=== PATIENT | female | born 1950 | race Caucasian/White ===

== ENCOUNTER 2020-06-29 07:53 | Emergency (ER) | payer OTHER ==
[2020-06-29 08:03] VITALS: BMI 22.4
[2020-06-29] MEDS ORDERED: LIDOCAINE 5% TOPICAL PATCH TP ONE (08:59)
[2020-06-29] MEDS ORDERED: ACETAMINOPHEN 325 MG TABLET (FP) PO ONE (08:59)
[2020-06-29] MEDS ORDERED: ACETAMINOPHEN 325 MG TABLET (FP) ONE (09:23)
[2020-06-29] MEDS ORDERED: LIDOCAINE 5% TOPICAL PATCH ONE (09:23)
[2020-06-29] MEDS ORDERED: IBUPROFEN 400 MG TABLET (FP) PO ONE ×2 (09:25→09:48)
[2020-06-29 09:33] LABS: HEMATOCRIT 37.9 % (32.4-45.2); HEMOGLOBIN 12.4 GM/dL (10.7-15.3); MCH 28.8 pg (25.7-33.7); MCHC 32.7 g/dl (32.0-36.0); MEAN CELL VOLUME 87.9 fl (80-96); MEAN PLT VOLUME 9.3 fl (7.5-11.1); PLATELET COUNT 240 K/MM3 (134-434); RBC 4.31 M/mm3 (3.60-5.2); RDW 14.3 % (11.6-15.6)
[2020-06-29 09:56] LABS: CHLORIDE 107 mmol/L (98-107); POTASSIUM 3.9 mmol/L (3.5-5.1); SODIUM 140 mmol/L (136-145)
[2020-06-29 10:03] LABS: ANION GAP 5 MMOL/L (8-16); BLOOD UREA NITROGEN 16.2 mg/dL (7-18); CALCIUM 9.4 mg/dL (8.5-10.1); CO2 29 mmol/L (21-32); GLUCOSE,RANDOM 110 mg/dL (74-106)
[2020-06-29 10:04] LABS: BILIRUBIN,TOTAL 0.4 mg/dL (0.2-1)
[2020-06-29 10:05] LABS: SGPT/ALT 28 U/L (13-61)
[2020-06-29 10:06] LABS: CREATININE 0.7 mg/dL (0.55-1.3); SGOT/AST 16 U/L (15-37)
[2020-06-29 10:07] LABS: TOT PROT 7.7 g/dl (6.4-8.2)
[2020-06-29 10:08] LABS: ALK PHOS 64 U/L (45-117)
[2020-06-29 15:22] VITALS: BP 148/63; PULSE 71; TEMP 97.7
[2020-06-29] MEDS ORDERED: LIDOCAINE PATCH REMOVAL MC ONE (22:00)
== END 2020-06-29 15:22 | disposition home or self-care (01) ==
LOC: JER 07:53
DX: M79.602 Pain in left arm (principal); R07.9 Chest pain, unspecified
CPT/HCPCS: 36415; 71046-TC-FY; 72125-TC; 80053; 82550; 84484; 85027; 93005; 93010; 93971; 99285-25

== ENCOUNTER 2024-03-21 15:58 | Emergency (ER) | payer OTHER ==
[2024-03-21 16:15] VITALS: BP 168/79; PULSE 63; RESP 18; TEMP 97.7; BMI 24.4
[2024-03-21] MEDS ORDERED: ACETAMINOPHEN 500 MG TABLET (FP) PO ONE (17:25)
== END 2024-03-21 19:11 | disposition left against medical advice (07) ==
LOC: JER 15:58
DX: R51.9 Headache, unspecified (principal)
CPT/HCPCS: 70450-TC; 99284-25